=== PATIENT | male | born 1930 | race Caucasian/White ===

== ENCOUNTER 2017-11-17 19:21 | Emergency (ER) | payer MEDICARE ==
[2016-02-28 10:29] VITALS: BMI 28.1
[~2017-11-17 19:21] MED LIST: ASPIRIN81 MG PO; BETAPACE 120 M120 MG PO; CARDIZEM CD240 MG PO; CARTIA XT240 MG PO; COREG12.5 MG PO; COZAAR50 MG PO; EZFE 200200 MG PO; FERROCITE PLUS1 CAP; FERROUS SULFAT325 MG PO; FOLIC ACID0.8 MG PO; GLUCOPHAGE1000 MG PO; HYDROCHLOROTH12.5 M1 PO; K-DUR20 MEQ PO; LANOXIN125 MCG PO; LASIX20 MG PO; LEVEMIR100 U/M1 SC; LOPRESSOR25 MG PO; NOVOLOG100 U/M1 SC; PLAVIX75 MG PO; PRAVACHOL20 MG PO; PRILOSEC20 MG PO; VIT B 12 IM; VITAMIN B-1000 MCG/M IM; VITAMIN D2000 UNIT PO; XARELTO20 MG PO
[2017-11-17 19:43] LABS: BASOPHILS 0.2 % (0-2); EOSINOPHILS 1.2 % (0-7); HEMOGLOBIN 11.7 g/dL (13.5-17.5); IMMATURE GRANULOCYTES 0.5 % (0-5); LYMPHOCYTES 24.7 % (15-50); MCH 29.5 pg (26.0-34.0); MCHC 32.5 g/dL (31.0-37.0); MCV 90.7 fL (80.0-100.0); MEAN PLATELET VOLUME 10.7 fL (7.4-10.4); MONOCYTES 7.7 % (2-11); NEUTROPHILS 65.7 % (40-80); PLATELET COUNT 253 10x3/uL (130-400); RBC 3.97 10x6/uL (4.20-6.10); RDW 14.4 % (11.5-14.5); WBC 6.6 10x3/uL (4.8-10.8)
[2017-11-17 20:27] LABS: ALBUMIN 3.4 g/dL (3.4-5.0); ALKALINE PHOSPHATASE 45 U/L (46-116); ALT (SGPT) 10 U/L (10-68); BILIRUBIN - TOTAL 0.14 mg/dL (0.2-1.3); CALC OSMOLALITY 289 mosm/kg (275-300); CALCIUM 8.9 mg/dL (8.5-10.1); CARBON DIOXIDE 21.3 mmol/L (21.0-32.0); CHLORIDE - SERUM 104 mmol/L (98-107); CREATININE - SERUM 1.5 mg/dL (0.6-1.3); GLUCOSE 229 mg/dL (74-106); POTASSIUM - SERUM 4.2 mmol/L (3.5-5.1); PROTEIN - SERUM 6.9 g/dL (6.4-8.2); SODIUM 139 mmol/L (136-145); UREA NITROGEN 26 mg/dL (7-18); eGFR NON AFRICAN AMERICAN 47 mL/min (90-120)
[2017-11-17 20:38] LABS: CHOL - HDL RATIO 4.2 ratio (2.3-4.9); CHOLESTEROL, TOTAL 146 mg/dL (0-200); CREATINE KINASE 56 UL (21-232); HDL CHOLESTEROL 35 mg/dL (32-96); LDL CHOLESTEROL 69 mg/dL (0-100); TRIGLYCERIDE 213 mg/dL (30-200)
[2017-11-17 20:47] LABS: TROPONIN-I < 0.017 ng/mL (0.000-0.060)
== END 2017-11-17 21:12 | disposition home or self-care (01) ==
LOC: D.ER 19:21
PROVIDERS: Emergency Medicine
DX: R07.9 Chest pain, unspecified (principal); I50.9 Heart failure, unspecified; I10 Essential (primary) hypertension; Z85.46 Personal history of malignant neoplasm of prostate; E10.9 Type 1 diabetes mellitus without complications; Z79.4 Long term (current) use of insulin; I44.0 Atrioventricular block, first degree

== ENCOUNTER 2018-06-04 18:19 | Observation (INO) | payer MEDICARE ==
[~2018-06-04] VITALS: Ht 170.2 cm; Wt 79.5 kg
--- NOTE | ~2018-06-04 | DS ---
PATIENT:REZA CHRISTENSEN :34 MEDICAL RECORD: [id number] DISCHARGE SUMMARY ADMISSION DATE: 06/04/18 DISCHARGE DATE: 06/05/18 DISCHARGE DIAGNOSES: 1. Atypical chest pain. 2. Orthostasis/dizziness. 3. Intravascular volume depletion. 4. Hypertension. 5. Diabetes mellitus. 6. Dyslipidemia. BRIEF HISTORY AND HOSPITAL COURSE: Admitted with some atypical chest pain, had elevated BUN and creatinine, responded quite well to IV hydration with normalization of his creatinine and BUN. Due to social constraints with at home with Alzheimer's, he deferred any further workup at this time. He will be seen back by Dr. Jimenez at the end of the month if symptoms continue. Consider further testing at that time. TRANSINT:[id number] Voice Confirmation ID: [id number] DOCUMENT ID: [id number] RUSS COLON MD at 1505 CC: [id number] DICTATION DATE: 06/05/18813 SMELTER LINER: 06/05/18 1130 DIS IN 06/05/18 [place] [id number] [place] [address]
[~2018-06-04 18:19] MED LIST changes: -VITAMIN B-1000 MCG/M IM; +VITAMIN B-121000 MCG PO
[2018-06-04 18:50] LABS: BASOPHILS 0.1 % (0-2); EOSINOPHILS 0.9 % (0-7); HEMATOCRIT 33.6 % (42.0-54.0); IMMATURE GRANULOCYTES 0.4 % (0-5); LYMPHOCYTES 16.8 % (15-50); MCH 29.3 pg (26.0-34.0); MCHC 32.7 g/dL (31.0-37.0); MCV 89.4 fL (80.0-100.0); MEAN PLATELET VOLUME 11.1 fL (7.4-10.4); MONOCYTES 7.8 % (2-11); PLATELET COUNT 211 10x3/uL (130-400); RBC 3.76 10x6/uL (4.20-6.10); RDW 14.2 % (11.5-14.5); WBC 8.6 10x3/uL (4.8-10.8)
[2018-06-04 19:18] LABS: ALBUMIN 2.9 g/dL (3.4-5.0); ALKALINE PHOSPHATASE 52 U/L (46-116); ALT (SGPT) 8 U/L (10-68); BILIRUBIN - TOTAL 0.18 mg/dL (0.2-1.3); CALC OSMOLALITY 289 mosm/kg (275-300); CALCIUM 8.4 mg/dL (8.5-10.1); CARBON DIOXIDE 25.3 mmol/L (21.0-32.0); CHLORIDE - SERUM 105 mmol/L (98-107); CREATININE - SERUM 1.4 mg/dL (0.6-1.3); GLUCOSE 247 mg/dL (74-106); POTASSIUM - SERUM 4.3 mmol/L (3.5-5.1); PROTEIN - SERUM 6.8 g/dL (6.4-8.2); SODIUM 140 mmol/L (136-145); UREA NITROGEN 22 mg/dL (7-18); eGFR NON AFRICAN AMERICAN 51 mL/min (90-120)
[2018-06-04 19:29] LABS: CKMB 1.6 U/L (0.0-3.6)
[2018-06-04 19:33] LABS: TROPONIN-I < 0.017 ng/mL (0.000-0.060)
[2018-06-04 20:00] VITALS: BP 130/53
[2018-06-05 00:04] LABS: CREATINE KINASE 74 UL (21-232)
[2018-06-05 00:12] LABS: TROPONIN-I < 0.017 ng/mL (0.000-0.060)
[2018-06-05 01:10] VITALS: BP 152/74
[2018-06-05 03:39] VITALS: BP 152/74; Ht 170.2 cm; Wt 79.5 kg
[2018-06-05 05:05] VITALS: BP 118/67
[2018-06-05 05:35] LABS: BASOPHILS 0.1 % (0-2); EOSINOPHILS 0.9 % (0-7); HEMATOCRIT 32.2 % (42.0-54.0); HEMOGLOBIN 10.6 g/dL (13.5-17.5); IMMATURE GRANULOCYTES 0.4 % (0-5); MCH 29.4 pg (26.0-34.0); MCHC 32.9 g/dL (31.0-37.0); MCV 89.2 fL (80.0-100.0); MEAN PLATELET VOLUME 10.9 fL (7.4-10.4); MONOCYTES 11.6 % (2-11); PLATELET COUNT 199 10x3/uL (130-400); RBC 3.61 10x6/uL (4.20-6.10); RDW 14.4 % (11.5-14.5); WBC 7.4 10x3/uL (4.8-10.8)
[2018-06-05 06:11] LABS: ALBUMIN 2.7 g/dL (3.4-5.0); ALKALINE PHOSPHATASE 41 U/L (46-116); BILIRUBIN - TOTAL 0.22 mg/dL (0.2-1.3); CALCIUM 8.3 mg/dL (8.5-10.1); CHLORIDE - SERUM 106 mmol/L (98-107); CKMB 1.2 U/L (0.0-3.6); CREATINE KINASE 64 UL (21-232); CREATININE - SERUM 1.2 mg/dL (0.6-1.3); PROTEIN - SERUM 6.5 g/dL (6.4-8.2); SODIUM 139 mmol/L (136-145); TROPONIN-I < 0.017 ng/mL (0.000-0.060); UREA NITROGEN 21 mg/dL (7-18); eGFR NON AFRICAN AMERICAN 61 mL/min (90-120)
[2018-06-05 06:13] LABS: ALT (SGPT) 11 U/L (10-68); CALC OSMOLALITY 284 mosm/kg (275-300); GLUCOSE 170 mg/dL (74-106)
[2018-06-05 08:16] VITALS: BP 131/65
== END 2018-06-05 11:51 | disposition home or self-care (01) ==
LOC: D.ER 18:19 → D.M2 19:57 → OBSVTIME 19:57 → D.EDHOLD 19:57 → D.M2 20:42
PROVIDERS: Emergency Medicine; Family Medicine
DX: R07.89 Other chest pain (principal); I25.10 Atherosclerotic heart disease of native coronary artery without angina pectoris; Z95.5 Presence of coronary angioplasty implant and graft; R42 Dizziness and giddiness; E86.9 Volume depletion, unspecified; I10 Essential (primary) hypertension; E11.40 Type 2 diabetes mellitus with diabetic neuropathy, unspecified; E78.5 Hyperlipidemia, unspecified

== ENCOUNTER → 2019-05-12 09:39 | Outpatient (CLI) | payer MEDICARE ==
[2018-06-05 03:39] VITALS: BMI 27.3
--- NOTE | 2019-05-17 09:50 | ST ---
PATIENT:REZA CHRISTENSEN MEDICAL RECORD: [id number] SEX: M LOCATION:[facility], [place] ORDER #: ADMISSION DATE: 05/12/19 AGE OF PATIENT: 88 REFERRING PHYSICIAN: INTERPRETING PHYSICIAN: ALPHONSE BERNARDO MD DATE OF SERVICE: 05/12/2019 PROCEDURE: Nuclear Stress Test. INDICATION: Angina, coronary artery disease, shortness of breath, hypertension. He was exercised on standard Lexiscan protocol with 32 mCi of sestamibi injected at peak stress, 11 mCi used previously for rest images. FINDINGS: Gated SPECT reveals a preserved ejection fraction at 46% with decreased thickening and brightening throughout the inferior segments. SPECT imaging: Cardiology was used as myocardial perfusion agent. There is a fixed perfusion defect inferoapically compatible with previous inferoapical myocardial infarction. There is no evidence of reversibility in the remaining segments with homogeneous uptake at rest and stress. In fact, there is improvement in the defect with stress. OVERALL IMPRESSION: This is an abnormal nuclear stress test only showing a fixed perfusion defect that is stable inferiorly. No evidence of reversibility and ejection fraction preserved at 46%. Continue medical management of the coronary artery disease and cardiac risk factors. TRANSINT:[id number] Voice Confirmation ID: [id number] DOCUMENT ID: [id number] ALPHONSE BERNARDO MD at 0950 CC: ANISA REA [id number] DICTATION DATE: 05/12/19 1639 [employer] SUPERVISOR: 05/13/19 0854 [facility] CLI 05/12/19 [place] [id number] [place] [id number]
== END | disposition home or self-care (01) ==
LOC: D.HCCARDIO 09:39
PROVIDERS: ATTEND Internal Medicine Interventional Cardiology
DX: I25.119 Atherosclerotic heart disease of native coronary artery with unspecified angina pectoris (principal)

== ENCOUNTER 2020-08-24 11:19 | Emergency (ER) | payer MEDICARE ==
[~2020-08-24] VITALS: Ht 170.2 cm; Wt 80.0 kg
[2020-08-24 11:22] VITALS: Ht 170.2 cm; Wt 80.0 kg
[2020-08-24] MEDS ORDERED: OMEPRAZOLE20 M1 PO (11:30)
[2020-08-24] MEDS ORDERED: BETAPACE 120 M120 MG PO (11:33)
[2020-08-24 12:49] VITALS: BP 138/78
== END 2020-08-24 12:50 | disposition home or self-care (01) ==
LOC: D.ER 11:19
DX: S83.92XA Sprain of unspecified site of left knee, initial encounter (principal); M25.552 Pain in left hip; E11.40 Type 2 diabetes mellitus with diabetic neuropathy, unspecified; I11.0 Hypertensive heart disease with heart failure; I50.9 Heart failure, unspecified; I25.2 Old myocardial infarction; K21.9 Gastro-esophageal reflux disease without esophagitis; Z79.84 Long term (current) use of oral hypoglycemic drugs; M79.605 Pain in left leg; W19.XXXA Unspecified fall, initial encounter; Y93.9 Activity, unspecified; Y92.9 Unspecified place or not applicable